=== PATIENT | female | born 1980 | race Asian ===

== ENCOUNTER 2017-04-01 09:20 | Inpatient (IN) | payer OTHER ==
[2017-04-01] MEDS: DEXTROSE 5%-LACTATED RINGERS 1,000 ML IV SCH ×2 (09:45→17:53)
[2017-04-01] MEDS ORDERED: AMPICILLIN SODIUM 2 GM VIAL ONE (10:03)
[2017-04-01] MEDS ORDERED: AMPICILLIN - 2 GM in SODIUM CHLORIDE 100 ML IVPB ONE (10:30)
[2017-04-01] MEDS ORDERED: TUBERCULIN PPD 5 TU/0.1ML SYRINGE (IN PATIENT USE ONLY) ID ONE (11:00)
[2017-04-01 11:25] LABS: BASO % 0.3 % (0-2.0); EOS % 1.5 % (0-4.5); HEMATOCRIT 42.9 % (32.4-45.2); HEMOGLOBIN 14.2 GM/dL (10.7-15.3); LYMPH % 18.8 % (8-40); MCH 29.4 pg (25.7-33.7); MCHC 33.1 g/dl (32.0-36.0); MEAN PLT VOLUME 7.2 fl (7.5-11.1); MONO % 6.8 % (3.8-10.2); NEUT % 72.6 % (42.8-82.8); PLATELET COUNT 304 K/MM3 (134-434); RBC 4.82 M/mm3 (3.60-5.2); WHITE BLOOD COUNT 15.1 K/mm3 (4.0-10.0)
[2017-04-01 11:37] VITALS: BMI 35.7
[2017-04-01 11:38] LABS: INR 0.93 (0.82-1.09); PROTHROMBIN TIME (PATIENT) 10.5 SEC (9.98-11.88)
[2017-04-01 11:41] LABS: ACTIVATED PTT 24.8 SECONDS (26.9-34.4)
[2017-04-01 11:51] LABS: ANION GAP 9 (8-16); BLOOD UREA NITROGEN 5 mg/dL (7-18); CALCIUM 9.4 mg/dL (8.5-10.1); CHLORIDE 107 mmol/L (98-107); CO2 24 mmol/L (21-32); CREATININE 0.5 mg/dL (0.55-1.02); GLUCOSE,RANDOM 100 mg/dL (74-106); POTASSIUM 4.2 mmol/L (3.5-5.1); SODIUM 140 mmol/L (136-145)
[2017-04-01] MEDS: AMPICILLIN - 1 GM in SODIUM CHLORIDE 100 ML IVPB SCH ×2 (14:23→18:30)
[2017-04-01] MEDS ORDERED: BUTORPHANOL TARTRATE 1 MG/ML VIAL IVPUSH ONE (14:52)
[2017-04-01] MEDS ORDERED: PROMETHAZINE HCL 25 MG/1 ML VIAL IVPUSH ONE (14:52)
--- NOTE | 2017-04-01 15:27 | HP ---
Past Medical History - Primary Care Physician PCP:: Lazaro Brandt - Admission Chief Complaint: 39 ,6 weeks, previous c/s ,rom, request of repeat c/s History of Present Illness: one previous c/s c/o rom since 9 am today, irregular contraction, clear fluid, cx 3 cm 80 vx -3 real travis , fhr cat 1, irregular contraction History Source: Patient Limitations to Obtaining History: No Limitations - Past Medical History ...: 2 ...Para: 1 ...Term: 1 ...: 0 ...Spon : 0 ...Induced : 0 ...Multiple Gestation: 0 ...LMP: 06/26/16 ... Weeks Gestation by Dates: 39.6 ...EDC by Dates: 04/02/17 ...EDC by Sono: 04/02/17 - Past Surgical History Past Surgical History: Yes: Hx Myomectomy: No Hx Transabdominal Cerclage: No - Smoking History Smoking history: Never smoked Have you smoked in the past 12 months: No - Alcohol/Substance Use Hx Alcohol Use: No - Social History Usual Living Arrangement: Yes: With Spouse History of Recent Travel: No Home Medications - Allergies Allergies/Adverse Reactions: Allergies Allergy/AdvReac Type Severity Reaction Status Date / Time No Known Allergies Allergy Verified 04/01/17 09:58 - Home Medications Home Medications: Ambulatory Orders Vit/Iron Fum/Folic AC [ Tablet] 1 each PO DAILY 04/01/17 Review of Systems - Review of Systems Constitutional: reports: No Symptoms Eyes: reports: No Symptoms HENT: reports: No Symptoms Neck: reports: No Symptoms Cardiovascular: reports: No Symptoms Gastrointestinal: reports: No Symptoms Genitourinary: reports: No Symptoms Breasts: reports: No Symptoms Reported Musculoskeletal: reports: No Symptoms Integumentary: reports: No Symptoms Neurological: reports: No Symptoms Endocrine: reports: No Symptoms Psychiatric: reports: No Symptoms Physical Exam - Maternity Vital Signs: Vital Signs Temperature 97.9 F 04/01/17 14:00 Pulse Rate 108 H 04/01/17 14:00 Respiratory Rate 18 04/01/17 14:00 Blood Pressure 117/62 04/01/17 14:00 O2 Sat by Pulse Oximetry (%) Constitutional: Yes: Well Nourished, No Distress, Calm Eyes: Yes: WNL, Conjunctiva Clear, EOM Intact HENT: Yes: WNL, Atraumatic, Normocephalic Neck: Yes: WNL, Supple, Trachea Midline Cardiovascular: Yes: WNL, Regular Rate and Rhythm Breast(s): Yes: WNL - Abdominal Exam/OB Fundal Height: 40 Number of Fetuses: Single Presentation: Vertex Contractions: Yes Regularity: Irregular Intensity: Mod/Strong Monitor Mode: External Heart Rate Location: [facility] Category: I Accelerations: Uniform Decelerations: None - Vaginal Exam/OB Vaginal Bleediing: No Speculum Exam: No Dilatation (cm): 3 cm Effacement (%): 80 Amniotic Membrane Status: Ruptured Nitrazine Test: Positive Amniotic Fluid: Yes: Clear Presentation: Vertex/Position - Physical Exam Musculoskeletal: Yes: WNL Extremities: Yes: WNL Edema: Yes Edema: LLE: Trace, RLE: Trace Deep Tendon Reflex Grade: Normal +2 Psychiatric: Yes: Alert - Labs Lab Results: CBC, BMP 04/01/17 11:00 04/01/17 11:00 Hemorrhage Risk Assessment - Risk Factors Medium Risk Factors: Yes: None Risk Score: 1 Risk Level: Medium Risk Problem List - Problems (1) with 39 completed weeks gestation Code(s): Z3A.39 - 39 WEEKS GESTATION OF (2) Previous section complicating Code(s): O34.219 - MATERNAL CARE FOR UNSP TYPE SCAR FROM PREVIOUS DEL (3) membrane rupture Code(s): [id number] - Assessment/Plan admit , FHM , wants , risks discussed
[2017-04-01] MEDS: ELECTROLYTE-148 SOLN 1,000 ML IV SCH (20:00)
[2017-04-01] MEDS ORDERED: ACETAMINOPHEN 325 MG TABLET (FP) PO PRN (20:14)
[2017-04-01] MEDS ORDERED: ONDANSETRON 4 MG/2 ML VIAL IVPUSH PRN (20:14)
[2017-04-01] MEDS ORDERED: morphine SULFATE/Preservative Free 0.5 MG/ML (1cc Syringe) ONE ×5 (20:21→21:42)
[2017-04-01] MEDS ORDERED: KETOROLAC TROMETHAMINE 30 MG/1 ML VIAL ONE (20:22)
[2017-04-01] MEDS ORDERED: LIDOCAINE HCL 2% 100 MG/5 ML DISP.SYRIN ONE (21:05)
[2017-04-01] MEDS ORDERED: OXYTOCIN 10 UNITS/ML VIAL ONE ×2 (21:11→21:47)
[2017-04-01] MEDS ORDERED: PROPOFOL 20 ML ONE ×2 (21:19→21:58)
[2017-04-01] MEDS ORDERED: MIDAZOLAM HCL 2 MG/2 ML SINGLE DOSE VIAL ONE (21:20)
[2017-04-01] MEDS ORDERED: SODIUM CHLORIDE 0.9% P/F 10 ML VIAL IJ ONE (21:26)
[2017-04-01] MEDS ORDERED: ceFAZolin SODIUM 1 GM VIAL ONE (21:26)
[2017-04-01] MEDS ORDERED: DEXAMETHASONE SOD PHOSPHATE 4 MG/1 ML VIAL ONE (21:30)
[2017-04-01] MEDS ORDERED: ePHEDrine SULFATE 50 MG/1 ML AMPULE ONE (21:31)
[2017-04-01] MEDS ORDERED: CITRIC ACID/SODIUM CITRATE 30 ML UNIT-DOSE CUP PO ONE (22:00)
[2017-04-01] MEDS ORDERED: SUCCINYLCHOLINE CHLORIDE 200 MG/10 ML VIAL ONE (22:10)
[2017-04-01] MEDS ORDERED: METHYLERGONOVINE MALEATE 0.2 MG/1 ML AMP IM PRN (22:15)
[2017-04-01] MEDS ORDERED: diphenhydrAMINE HCL 25 MG CAPSULE (FP) PO PRN (22:15)
[2017-04-01] MEDS ORDERED: OXYTOCIN 20 UNITS in 0.9% NS 20 UNIT/1,000 ML INFUS.BAG IV SCH (22:15)
[2017-04-01] MEDS ORDERED: BENZOCAINE 20% 57 GM BOTTLE TP PRN (22:15)
[2017-04-01] MEDS ORDERED: WITCH HAZEL 50% (TUCKS) 40 PAD/JAR PAD TP PRN (22:15)
[2017-04-01] MEDS ORDERED: BENZOCAINE 28 GM HEMORRHOIDAL OINTMENT PR PRN (22:15)
[2017-04-01] MEDS ORDERED: oxyCODONE HCL 5 MG TABLET PO PRN (22:20)
[2017-04-01] MEDS ORDERED: IBUPROFEN 800 MG/8 ML IJ IVPB ONE (22:47)
[2017-04-01] MEDS: IBUPROFEN 800 MG/8 ML IJ IVPB PRN (23:00)
[2017-04-01] MEDS ORDERED: HYDROmorphone HCL CARPU-JECT 1 MG/1 ML DISP.SYRIN IVPUSH ONE (23:30)
[2017-04-02] MEDS: CEFAZOLIN 1 GM PUSH 1 GM/10 ML DISP.SYRIN IVPUSH SCH ×2 (01:52→09:50)
[2017-04-02] MEDS: HYDROmorphone HCL CARPU-JECT 1 MG/1 ML DISP.SYRIN IVPB PRN ×4 (03:12→22:23)
[2017-04-02 06:28] LABS: HEMATOCRIT 32.2 % (32.4-45.2); HEMOGLOBIN 10.9 GM/dL (10.7-15.3); MCH 30.2 pg (25.7-33.7); MCHC 33.9 g/dl (32.0-36.0); MEAN CELL VOLUME 88.8 fl (80-96); MEAN PLT VOLUME 7.4 fl (7.5-11.1); PLATELET COUNT 260 K/MM3 (134-434); RBC 3.63 M/mm3 (3.60-5.2); RDW 13.9 % (11.6-15.6)
--- NOTE | 2017-04-02 07:33 | PN ---
Progress Note, Physician Chief Complaint: Pt is day#1 s/p C/S - Current Medication List Current Medications: Active Medications Acetaminophen (Tylenol -) 650 mg PO Q4H PRN PRN Reason: PAIN LEVEL 1-5 Benzocaine (Americaine 20% Crouse -) 1 spray TP DAILY PRN PRN Reason: Pain - Topical Benzocaine (Americaine Ointment -) 1 applic TN DAILY PRN PRN Reason: Pain - Topical Bisacodyl (Dulcolax Suppository -) 10 mg RC DAILY PRN PRN Reason: CONSTIPATION Citric Acid/Sodium Citrate (Bicitra Oral Solution -) 30 ml PO NOW ONE Stop: 04/01/17 22:01 Last Admin: 04/01/17 20:00 Dose: 30 ml Diphenhydramine HCl (Benadryl -) 25 mg PO Q8H PRN PRN Reason: FOR ITCHING Enoxaparin Sodium (Lovenox -) 40 mg SQ DAILY [facility] Fentanyl (Sublimaze Injection -) 50 mcg IVPUSH [id number] PRN PRN Reason: PAIN-PACU ORDER X 4 DOSES ONLY Hydromorphone HCl (Dilaudid Injection -) 1 mg IVPB Q4H PRN PRN Reason: PAIN LEVEL 4 - 6 Last Admin: 04/02/17 03:12 Dose: 1 mg Cefazolin Sodium (Ancef -) 1 gm in 10 mls @ 100 mls/hr IVPUSH Q8H-IV YOVANI Stop: 04/02/17 10:05 Last Admin: 04/02/17 01:52 Dose: 100 mls/hr Dextrose/Lactated Ringer's (D5-Lr -) 1,000 mls @ 125 mls/hr IV ASDIR [facility] Parenteral Electrolytes (Plasma-Lyte 148 -) 1,000 mls @ 75 mls/hr IV ASDIR YOVANI Last Admin: 04/01/17 20:00 Dose: 75 mls/hr Ibuprofen (Motrin -) 600 mg PO Q4H PRN PRN Reason: PAIN LEVEL 1 - 3 Ibuprofen (Caldolor Injection -) 800 mg IVPB Q6H PRN PRN Reason: PAIN > 5 if PO not effective. Last Admin: 04/01/17 23:00 Dose: 800 mg Methylergonovine Maleate (Methergine Injection -) 0.2 mg IM Q4H PRN PRN Reason: EXCESSIVE BLEEDING Oxycodone HCl (Roxicodone -) 5 mg PO Q4H PRN PRN Reason: PAIN LEVEL 4 - 6 Oxycodone HCl (Roxicodone -) 10 mg PO Q4H PRN PRN Reason: PAIN LEVEL 7 - 10 Senna/Docusate Sodium (Pericolace -) 2 tablet PO HS PRN PRN Reason: CONSTIPATION Simethicone (Mylicon -) 80 mg PO Q4H PRN PRN Reason: GAS Witch Ekta/Glycerin (Tucks Pads -) 1 pad TP DAILY PRN PRN Reason: Pain - Topical - Objective Vital Signs: Vital Signs Temperature 97.8 F 04/02/17 05:40 Pulse Rate 98 H 04/02/17 05:40 Respiratory Rate 20 04/02/17 05:40 Blood Pressure 112/54 04/02/17 05:40 O2 Sat by Pulse Oximetry (%) 100 04/01/17 23:15 Labs: CBC, BMP 04/02/17 06:10 04/01/17 11:00 INR, PTT INR 0.93 (0.82-1.09) 04/01/17 11:00 Assessment/Plan Pt had some pain overnight, which dilaudid relieved. Today she is resting comfortably. No apparent complications from anesthesia, no BOWLES, no back pain. Doing well.
--- NOTE | 2017-04-02 07:54 | PN ---
Progress Note (short form) - Note Progress Note: pod 1 c/o cramps, no active vaginal bleeding CBC, BMP 04/02/17 06:10 04/01/17 11:00 Last Vital Signs Temp Pulse Resp BP Pulse Ox 97.8 F 98 H 20 112/54 100 04/02/17 05:40 04/02/17 05:40 04/02/17 05:40 04/02/17 05:40 04/01/17 23:15 abdomen soft, no distension, no cva uterus firm, tender lochia mild no calf tenderness plan ambulate , repeat cbc in am . advance diet pain management Problem List - Problems (1) with 39 completed weeks gestation Code(s): Z3A.39 - 39 WEEKS GESTATION OF (2) Previous section complicating Code(s): O34.219 - MATERNAL CARE FOR UNSP TYPE SCAR FROM PREVIOUS DEL (3) membrane rupture Code(s): [id number] -
[2017-04-02] MEDS: IBUPROFEN 800 MG/8 ML IJ IVPB PRN (08:01)
--- NOTE | 2017-04-02 10:05 | OP ---
DATE OF OPERATION: 04/01/2017 PREOPERATIVE DIAGNOSES: , 39.6 weeks' gestation. Previous section. Prolonged rupture of membranes. Failure of vaginal after section. POSTOPERATIVE DIAGNOSES: , 39.6 weeks' gestation. Previous section. Prolonged rupture of membranes. Failure of vaginal after section. PROCEDURE: Repeat low-segment transverse section. SURGEON: Ramakrishna Brandt MD ED TEACHER: CHRISTIN Dickens ANESTHESIA: General. ANESTHESIOLOGIST: ESTIMATED BLOOD LOSS: 900 mL DESCRIPTION OF OPERATION: Patient was taken to the operating room. Abdomen and perineum were prepped and draped. Under adequate general anesthesia, a Pfannenstiel abdominal skin incision was made over the previous incision. Abdominal wall was cut layer by layer until peritoneum was exposed and incised. Upon entering the abdominal cavity, lower uterine segment was identified and uterovesical fold of peritoneum established. Bladder was pushed down. Then, with the lower blade of the Welsh retractor in the pelvis, a low transverse uterine incision was made. Incision extended laterally with bandage scissors. Amniotic sac was entered, clear fluid. Head delivered. Cord around the neck x1 reduced. Live baby girl was delivered. Placenta was delivered manually. Uterine cavity was cleaned out of remaining tissue. Uterine incision was closed in 2 layers, first layer with 0 Biosyn continuous suture, the second layer with 0 Biosyn imbricating the first layer. Bladder flap was closed with 0 Biosyn continuous suture. Both tubes and ovaries were checked, were normal. No active bleeding was seen. All the lap packs, sponge count, and instrument count were correct. Then, peritoneum was closed with 0 Biosyn continuous suture. Muscles were brought together with interrupted suture of 0 Biosyn. Fascia was closed with 0 Biosyn continuous suture and subcutaneous fat with interrupted suture of 0 Biosyn, and skin was closed with 4-0 Biosyn subcuticular suture. Patient tolerated the procedure well, left the OR in good condition. RAMAKRISHNA BRANDT M.D. [id number]
[2017-04-02 11:06] LABS: PLATELET ESTIMATE ADEQUATE
[2017-04-02] MEDS: DEXTROSE 5%-LACTATED RINGERS 1,000 ML IV SCH ×2 (14:00→22:11)
[2017-04-02] MEDS ORDERED: BISACODYL 10 MG SUPP.RECT RC PRN (22:15)
[2017-04-02] MEDS: SIMETHICONE 80 MG TAB.CHEW (FP) PO PRN (22:24)
[2017-04-03] MEDS: ELECTROLYTE-148 SOLN 1,000 ML IV SCH (01:59)
[2017-04-03] MEDS: DEXTROSE 5%-LACTATED RINGERS 1,000 ML IV SCH (01:59)
[2017-04-03] MEDS: SIMETHICONE 80 MG TAB.CHEW (FP) PO PRN ×5 (02:05→21:22)
[2017-04-03] MEDS: ACETAMINOPHEN 325 MG TABLET (FP) PO PRN ×5 (02:05→21:22)
[2017-04-03] MEDS: oxyCODONE HCL 5 MG TABLET PO PRN ×6 (02:05→21:29)
[2017-04-03] MEDS: ENOXAPARIN NA (PORCINE) 40 MG/0.4 ML DISP.SYRIN SQ SCH (10:13)
--- NOTE | 2017-04-03 10:37 | PN ---
Progress Note (short form) - Note Progress Note: pod 2 doing well. ambulating, passing gas CBC, BMP 04/02/17 06:10 04/01/17 11:00 Last Vital Signs Temp Pulse Resp BP Pulse Ox 98.7 F 103 H 18 113/68 100 04/02/17 22:00 04/02/17 22:00 04/02/17 22:00 04/02/17 22:00 04/01/17 23:15 abdomen soft, no distension, no cva incision dry, clean no calf tenderness plan ambulate, cbc in am Problem List - Problems (1) with 39 completed weeks gestation Code(s): Z3A.39 - 39 WEEKS GESTATION OF (2) Previous section complicating Code(s): O34.219 - MATERNAL CARE FOR UNSP TYPE SCAR FROM PREVIOUS DEL (3) membrane rupture Code(s): [id number] -
[2017-04-03] MEDS: IBUPROFEN 600 MG TABLET (FP) PO PRN (17:28)
[2017-04-03] MEDS: SENNOSIDES/DOCUSATE COMBO (SENNA PLUS) TABLET (UD) PO PRN (21:22)
[2017-04-04] MEDS: SIMETHICONE 80 MG TAB.CHEW (FP) PO PRN ×5 (02:17→21:56)
[2017-04-04] MEDS: ACETAMINOPHEN 325 MG TABLET (FP) PO PRN ×3 (02:19→13:26)
[2017-04-04] MEDS: oxyCODONE HCL 5 MG TABLET PO PRN ×4 (02:19→21:57)
[2017-04-04] MEDS: IBUPROFEN 600 MG TABLET (FP) PO PRN ×5 (02:20→21:58)
[2017-04-04 08:35] LABS: BASO % 0.5 % (0-2.0); EOS % 4.5 % (0-4.5); HEMATOCRIT 32.8 % (32.4-45.2); HEMOGLOBIN 10.8 GM/dL (10.7-15.3); LYMPH % 19.7 % (8-40); MCH 29.5 pg (25.7-33.7); MCHC 32.9 g/dl (32.0-36.0); MEAN CELL VOLUME 89.6 fl (80-96); MEAN PLT VOLUME 7.1 fl (7.5-11.1); MONO % 6.8 % (3.8-10.2); NEUT % 68.5 % (42.8-82.8); PLATELET COUNT 239 K/MM3 (134-434); RBC 3.66 M/mm3 (3.60-5.2); RDW 14.2 % (11.6-15.6); WHITE BLOOD COUNT 13.3 K/mm3 (4.0-10.0)
[2017-04-04] MEDS: ENOXAPARIN NA (PORCINE) 40 MG/0.4 ML DISP.SYRIN SQ SCH (09:26)
[2017-04-04] MEDS: ACYCLOVIR 800 MG TABLET PO SCH ×2 (11:14→21:57)
--- NOTE | 2017-04-04 14:18 | PN ---
Progress Note (short form) - Note Progress Note: CBC, BMP 04/04/17 08:00 04/01/17 11:00 Last Vital Signs Temp Pulse Resp BP Pulse Ox 98.2 F 89 18 119/79 100 04/04/17 07:47 04/04/17 07:47 04/04/17 07:47 04/04/17 07:47 04/01/17 23:15 doing well, has cramps on and off . has fever blister upper lip area abdomen soft, non tender incison dry, clean no calf tenderness plan ambulate acyclovir pain management Problem List - Problems (1) with 39 completed weeks gestation Code(s): Z3A.39 - 39 WEEKS GESTATION OF (2) Previous section complicating Code(s): O34.219 - MATERNAL CARE FOR UNSP TYPE SCAR FROM PREVIOUS DEL (3) membrane rupture Code(s): [id number] -
[2017-04-04] MEDS: SENNOSIDES/DOCUSATE COMBO (SENNA PLUS) TABLET (UD) PO PRN (21:57)
[2017-04-05] MEDS: IBUPROFEN 600 MG TABLET (FP) PO PRN ×3 (02:10→11:29)
[2017-04-05] MEDS: ACETAMINOPHEN 325 MG TABLET (FP) PO PRN ×3 (02:11→11:29)
[2017-04-05] MEDS: SIMETHICONE 80 MG TAB.CHEW (FP) PO PRN ×3 (02:12→11:29)
[2017-04-05 07:44] VITALS: BP 125/83; PULSE 80; TEMP 98.5
--- NOTE | 2017-04-05 08:19 | DS ---
Physical Exam-SENIOR PROCESS ANALYST Vital Signs: Vital Signs Temperature 98.5 F 04/05/17 07:43 Pulse Rate 80 04/05/17 07:43 Respiratory Rate 20 04/05/17 07:43 Blood Pressure 125/83 04/05/17 07:43 O2 Sat by Pulse Oximetry (%) 100 04/01/17 23:15 Constitutional: Yes: Well Nourished, No Distress, Calm Eyes: Yes: WNL, Conjunctiva Clear, EOM Intact HENT: Yes: WNL, Atraumatic, Normocephalic Neck: Yes: WNL, Supple, Trachea Midline Cardiovascular: Yes: WNL, Regular Rate and Rhythm Respiratory: Yes: WNL, Regular, CTA Bilaterally Gastrointestinal: Yes: WNL ...Rectal Exam: Yes: WNL Renal/: Yes: WNL ....Post : Yes: Uterus firm, Uterus non-tender, Slight lochia rubra Breast(s): Yes: WNL Musculoskeletal: Yes: WNL Extremities: Yes: WNL Edema: No Integumentary: Yes: WNL Wound/Incision: Yes: Clean/Dry, Well Approximated, Sutures Intact Neurological: Yes: WNL, Alert, Oriented ...Motor Strength: WNL Psychiatric: Yes: WNL, Alert, Oriented Labs: CBC, BMP 04/04/17 08:00 04/01/17 11:00 Delivery - Delivery Section: Repeat (no complication), Low Flap Transverse Type of Anesthesia: General Episiotomy/Laceration: None EBL (cc): 900 Delivery, Single - Stages of Labor Date 1st Stage Initiatied: 04/01/17 Time 1st Stage Initiated: 09:20 Date of Delivery: 04/01/17 Time of Delivery: 21:24 Time Placenta Delivered: 21:25 Placenta: Yes: Expressed - Condition of Infant Operations Executive/Lens Mounter Present: Yes Name: Nasrin Templeton Infant Gender: Female Weight: 7 lb 7 oz Position: Right, OP Total Hours ROM (Hrs/Mins): 24 hrs.25mins. - 1 Minute Total Score: 7 5 Minutes Total Score: 8 - [place] Feeding Plan Initial Plan: Elected not to breastfeed exclusively throughout hospitalization Discharge Summary Reason For Visit: LABOR ADMISSION Current Active Problems membrane rupture (Acute) with 39 completed weeks gestation (Acute) Previous section complicating (Acute) Procedures: Principal: repeat LST c/s Hospital Course: no complication - Instructions Diet, Activity, Other Instructions: Return to MD office in 1-2weeks for incision check up, call 0office for an appointment. Referrals: Lazaro Brandt MD [Staff Physician] - - Home Medications Comprehensive Discharge Medication List: Ambulatory Orders Vit/Iron Fum/Folic AC [ Tablet] 1 each PO DAILY 04/01/17 Ibuprofen [Motrin -] 600 mg PO QID #28 tablet 04/04/17
[2017-04-05] MEDS ORDERED: ELECTROLYTE-148 SOLN 1,000 ML IV SCH (08:30)
[2017-04-05] MEDS: ACYCLOVIR 800 MG TABLET PO SCH (09:42)
[2017-04-05] MEDS: ENOXAPARIN NA (PORCINE) 40 MG/0.4 ML DISP.SYRIN SQ SCH (09:42)
--- NOTE | 2017-04-06 18:54 | PATH ---
Surgical Pathology Report Patient Name: JUANITO HARRISON Med. Rec. #: [id number] /Age/Gender: 1980 (Age: 36) / F Account: [id number] Location: [facility] OBS/FEDERAL AID COORDINATOR Taken: 04/01/2017 Received: 04/02/2017 Reported: 04/06/2017 Physicians: Lazaro Brandt M.D. Specimen(s) Received PLACENTA Clinical History , 39.6 weeks' gestation, polycystic ovary PROM- 24, gestational diabetes-diet controlled Previous 2006 Final Diagnosis PLACENTA, SECTION: 507 g THIRD TRIMESTER PLACENTA WITH TRIVASCULAR UMBILICAL CORD AND UNREMARKABLE PLACENTAL MEMBRANES. Electronically Signed Taryn Baron M.D. Gross Description The specimen is received fresh labeled placenta and is a 507 gram, 18.5 x 15.5 x 3.0 cm. placenta with attached membranes and umbilical cord. The attached membranes are thomas, translucent with focal opacities and insert marginally. The umbilical cord measures 42 cm. in length and averages 1 cm. in diameter. The cord inserts centrally. No true knots or strictures are identified. Cut surface of the umbilical cord reveals 3 vessels. The surface is truong-blue with minimal fibrin deposition and appropriate caliber vessels. The maternal surface is red-brown with focal defects. Sectioning reveals red-brown, spongy parenchyma. No lesions are identified. Pewter Finisher sections are submitted in three cassettes as follows: 1- membrane rolls and umbilical cord; 2-3- full thickness sections of placenta. /04/05/201704/05/2017
== END 2017-04-05 16:00 | disposition home or self-care (01) | DRG 766 ==
LOC: JLDR 09:20 → J3W 04-02 00:15
PROVIDERS: ADMIT Obstetrics & Gynecology; ATTEND Obstetrics & Gynecology
PROC: 10D00Z1 Extraction of Products of Conception, Low, Open Approach (ICD-10-PCS; principal; 2017-04-01)
DX: O34.211 Maternal care for low transverse scar from previous cesarean delivery (principal); N85.8 Other specified noninflammatory disorders of uterus; Z3A.39 39 weeks gestation of pregnancy; Z37.0 Single live birth
CPT/HCPCS: 36415; 80048; 85025; 85610; 85730; 86593; 86850; 86900; 86901; 88307-TC